=== PATIENT | female | born 1985 | race Caucasian/White ===

== ENCOUNTER 2017-07-16 17:54 | Emergency (ER) | payer BC, OTHER ==
[~2017-07-16] VITALS: Ht 162.6 cm; Wt 65.9 kg
[~2017-07-16 17:54] MED LIST: MTR600X PO; PRENTAB26 PO
[2017-07-16 18:00] VITALS: TEMP 36.5; Ht 162.6 cm; Wt 65.9 kg
[2017-07-16] MEDS ORDERED: ONDANSETRON INJ 2 MG/ML 2 ML VIAL IV STA (18:16)
[2017-07-16] MEDS ORDERED: HYDROmorphone INJ 0.5 MG/0.5 ML SYR IV STA (18:16)
[2017-07-16] MEDS ORDERED: SODIUM CHLORIDE 0.9% 1000ML 1,000 ML IV STA (18:21)
[2017-07-16 18:34] LABS: BASO % 0.4 %; BASO ABS # 0.04 K/uL (0-0.2); COMPLETE YES; EOS % 2.8 %; IG% 0.2 %; LYMPH % 13.9 %; LYMPH ABS # 1.38 K/uL (1.2-3.4); MEAN CELL VOLUME 79.4 fL (80-100); MEAN CORPUSCULAR HEMOGLOBIN 24.7 pg (25-34); MEAN CORPUSCULAR HGB CONC 31.1 g/dl (32-36); MEAN PLATELET VOLUME 9.4 fL (7.4-10.4); MONO % 6.6 %; NEUT % 76.1 %; PLATELET COUNT 207 K/uL (130-400); RED BLOOD COUNT 4.41 M/uL (4.2-5.4); WHITE BLOOD COUNT 9.95 K/uL (4.8-10.8)
--- NOTE | 2017-07-16 18:36 | EMERGENCY ROOM VISIT NOTE ---
History First contact with patient: 18:03 Chief Complaint: ED VAG BLEEDING Stated Complaint: MISCARRIAGE History of Present Illness The patient is a 31 year old female who presents to the Emergency Room with complaints of crampy abdominal pain and vaginal bleeding -Pt reported a spontaneous today after going to see her OBGYN at [facility]. -Pt is at 8 weeks. -Pt reports vaginal bleeding since yesterday and crampy abdominal pain. -Pt says that today she has been dizzy, subjective fever and chills and continued bleeding -Pt describes 2 bloody pad per hour Review of Systems see below Constitutional: + chills, + sweats, No fever Respiratory: No cough, No sputum, No wheezing Cardiovascular: No chest pain, No edema, No palpitations Abdomen: + pain, + nausea, No vomiting, No diarrhea Past Medical/Surgical History Medical Problems: (1) section Social History Smoking Status: Never Smoker Current/Historical Medications Scheduled Multivit/Min/Iron/Fol Ac/Pren ( Vitamin), 1 TAB PO DAILY Scheduled PRN Oxycodone Immediate Rel Tab (Roxicodone Ir), 1-2 TAB PO Q4H PRN for Severe Pain Physical Exam Vital Signs Date Time Temp Pulse Resp B/P (MAP) Pulse Ox O2 Delivery O2 Flow Rate FiO2 07/16/17 20:43 63 93/56 99 Room Air 07/16/17 18:42 56 108/52 100 Room Air 07/16/17 18:00 36.5 52 18 86/55 97 Room Air Physical Exam see below General Appearance: WD/WN, + mild distress Head: normocephalic, atraumatic Eyes: normal inspection, PERRL, EOMI Respiratory/Chest: chest non-tender, lungs clear, normal breath sounds, no respiratory distress, no accessory muscle use Cardiovascular: regular rate, rhythm, no edema, no gallop, no murmur Abdomen / GI: normal bowel sounds, non tender, soft, no organomegaly, no pulsatile mass Medical Decision & Procedures ER Provider Diagnostic Interpretation: TRANSVAGINAL CLINICAL HISTORY: Spontaneous . COMPARISON STUDY: No previous studies for comparison. TECHNIQUE: Transabdominal and transvaginal sonography of the pelvis was performed. FINDINGS: The endometrium measures 1.3 cm in thickness. Note is made of a 1.1 x 0.3 x 0.8 cm cystic focus within the lower uterine segment which likely reflects an abnormally positioned gestational sac. No yolk sac or pole is identified. A possible uterine anomaly is noted with possible bicornuate uterus. The right ovary measures 3.3 x 2.1 x 1.3 cm and the left ovary measures 3.2 x 2.5 x 2 cm. Color flow is identified within each ovary. No adnexal masses are identified. IMPRESSION: 1. 1.1 cm cystic focus within the lower uterine segment which likely reflects an abnormally positioned gestational sac and favors a spontaneous . A normal early intrauterine gestation is considered less likely but could appear similar. Therefore, clinical follow-up, including serial beta hCG levels is recommended. 2. Normal sonographic appearance of the ovaries. No adnexal masses. 3. Possible bicornuate uterus. Laboratory Results 07/16/17 18:20 Red Blood Count 4.41, Mean Corpuscular Volume 79.4, Mean Corpuscular Hemoglobin 24.7, Mean Corpuscular Hemoglobin Concent 31.1, Mean Platelet Volume 9.4, Neutrophils (%) (Auto) 76.1, Lymphocytes (%) (Auto) 13.9, Monocytes (%) (Auto) 6.6, Eosinophils (%) (Auto) 2.8, Basophils (%) (Auto) 0.4, Neutrophils # (Auto) 7.57, Lymphocytes # (Auto) 1.38, Monocytes # (Auto) 0.66, Eosinophils # (Auto) 0.28, Basophils # (Auto) 0.04 07/16/17 18:20 Test 07/16/17 18:20 White Blood Count 9.95 K/uL (4.8-10.8) Red Blood Count 4.41 M/uL (4.2-5.4) Hemoglobin 10.9 g/dL (12.0-16.0) Hematocrit 35.0 % (37-47) Mean Corpuscular Volume 79.4 fL (80-100) Mean Corpuscular Hemoglobin 24.7 pg (25-34) Mean Corpuscular Hemoglobin Concent 31.1 g/dl (32-36) Platelet Count 207 K/uL (130-400) Mean Platelet Volume 9.4 fL (7.4-10.4) Neutrophils (%) (Auto) 76.1 % Lymphocytes (%) (Auto) 13.9 % Monocytes (%) (Auto) 6.6 % Eosinophils (%) (Auto) 2.8 % Basophils (%) (Auto) 0.4 % Neutrophils # (Auto) 7.57 K/uL (1.4-6.5) Lymphocytes # (Auto) 1.38 K/uL (1.2-3.4) Monocytes # (Auto) 0.66 K/uL (0.11-0.59) Eosinophils # (Auto) 0.28 K/uL (0-0.5) Basophils # (Auto) 0.04 K/uL (0-0.2) RDW Standard Deviation 52.3 fL (36.4-46.3) RDW Coefficient of Variation 17.8 % (11.5-14.5) Immature Granulocyte % (Auto) 0.2 % Immature Granulocyte # (Auto) 0.02 K/uL (0.00-0.02) Activated Partial Thromboplast Time 23.8 SECONDS (21.0-31.0) Partial Thromboplastin Ratio 0.9 Anion Gap 5.0 mmol/L (3-11) Est Creatinine Clear Calc Drug Dose 75.5 ml/min Estimated GFR () 86.8 Estimated GFR (Non- 74.9 BUN/Creatinine Ratio 8.2 (10-20) Calcium Level 8.9 mg/dl (8.5-10.1) Total Bilirubin 0.2 mg/dl (0.2-1) Direct Bilirubin < 0.1 mg/dl (0-0.2) Aspartate Amino Transf (AST/SGOT) 16 U/L (15-37) Alanine Aminotransferase (ALT/SGPT) 15 U/L (12-78) Alkaline Phosphatase 42 U/L (45-117) Total Protein 7.9 gm/dl (6.4-8.2) Albumin 3.9 gm/dl (3.4-5.0) Lipase 129 U/L (73-393) Human Chorionic Gonadotropin, Quant 4884 mIU/mL Medications Administered Medications (Trade) Dose Ordered Sig/Skyla Route Start Time Stop Time Status Last Admin Dose Admin Sodium Chloride 1,000 ml @ 999 mls/hr Q1H1M STAT IV 07/16/17 18:21 07/16/17 19:21 DC 07/16/17 18:40 999 MLS/HR Ondansetron HCl (Zofran Inj) 4 mg NOW STAT IV 10/16/17 18:16 07/16/17 18:23 DC 07/16/17 18:40 4 MG Hydromorphone HCl (Dilaudid Inj) 0.5 mg NOW STAT IV 07/16/17 18:16 07/16/17 18:23 DC 07/16/17 18:40 0.5 MG ED Course 1830 History and physical performed 1899 Labs ordered bhCG quantitative, CBC, PTT, LFT's, PRP, Lipase 1904 imaging ordered: transvaginal U/S 1909 Meds order: IVF bolus, Dilaudid .5 IV, Zofran 4 mg IV 1999 reaccessed patient 2100 discussed discharge with Nora MACIEL 21:30 Pt discharged Medical Decision 31 yo at 8 weeks comes into the ED with vaginal bleeding and abdominal pain -Pt describes having an USG earlier today which confirmed spontaneous vaginal -Pt has a blood pressure of 108/52, HR 65 -Considering the following differential: spontaneous vaginal (missed, inevitable, incomplete, complete), ectopic , ruptured ectopic -Pt was accessed throughout ED visit for hemodynamic stability. -Throughout ED course, patient was provided pain control, IVF and IV Zofran -Discussed with Nora MACIEL regarding patients lab findings, vitals and USG results: -Pt was found to be normotensive, with stable H/H and USG showed "1 cm cystic focus within the lower uterine segment which likely reflects an abnormally positioned gestational sac and favors a spontaneous " -Pt Hgb was 10.9. After reviewing the patient's past H/H, this appears to be the patient's baseline. -OBGYN agreed that the patient was stable to be discharged and should be followed closely in the outpatient setting. -Pt was discharged with pain medication. Impression Primary Impression: Spontaneous Additional Impression: Anemia Departure Information Dispostion Home / Self-Care Condition GOOD Prescriptions Oxycodone Immediate Rel Tab (ROXICODONE IR) 5 Mg Tab 1-2 TAB PO Q4H Y for Severe Pain for 7 Days, #14 TAB Prov: Vishnu Trinidad M.D. 07/16/17 Forms WORK / SCHOOL INSTRUCTIONS Patient Instructions [facility] [place] Additional Instructions Mrs. Steel, You came in today with vaginal bleeding and abdominal pain. It was determined earlier today that you were experiencing a miscarriage. The ultrasound in the emergency department also confirmed this as well. Labs test in the emergency department showed stable blood levels. In addition, your blood pressure and heart rate were stable as well. We talked to Nora MACIEL and together we determined that you are good enough condition to go home. They advise that you make an appointment with them tomorrow. We are giving you pain medications to take with you. Please take them as advised on the prescription. If you have any concerns such as increasing pain, bleeding, fever, please follow -up in the emergency room. Problem Qualifiers
[2017-07-16 18:47] LABS: PARTIAL THROMBOPLASTIN RATIO 0.9
[2017-07-16 19:00] LABS: ALT/SGPT 15 U/L (12-78); BLOOD UREA NITROGEN 8 mg/dl (7-18); BUN/CREATININE RATIO 8.2 (10-20); CALCIUM 8.9 mg/dl (8.5-10.1); CARBON DIOXIDE 30 mmol/L (21-32); CHLORIDE 102 mmol/L (98-107); CREATININE 0.99 mg/dl (0.60-1.20); GLUCOSE 114 mg/dl (70-99); POTASSIUM 3.6 mmol/L (3.5-5.1); SODIUM 137 mmol/L (136-145)
[2017-07-16 19:03] LABS: ALKALINE PHOSPHATASE 42 U/L (45-117); AST/SGOT 16 U/L (15-37)
--- NOTE | 2017-07-16 19:54 | DIAGNOSTIC IMAGING REPORT ---
TRANSVAGINAL CLINICAL HISTORY: Spontaneous . COMPARISON STUDY: No previous studies for comparison. TECHNIQUE: Transabdominal and transvaginal sonography of the pelvis was performed. FINDINGS: The endometrium measures 1.3 cm in thickness. Note is made of a 1.1 x 0.3 x 0.8 cm cystic focus within the lower uterine segment which likely reflects an abnormally positioned gestational sac. No yolk sac or pole is identified. A possible uterine anomaly is noted with possible bicornuate uterus. The right ovary measures 3.3 x 2.1 x 1.3 cm and the left ovary measures 3.2 x 2.5 x 2 cm. Color flow is identified within each ovary. No adnexal masses are identified. IMPRESSION: 1. 1.1 cm cystic focus within the lower uterine segment which likely reflects an abnormally positioned gestational sac and favors a spontaneous . A normal early intrauterine gestation is considered less likely but could appear similar. Therefore, clinical follow-up, including serial beta hCG levels is recommended. 2. Normal sonographic appearance of the ovaries. No adnexal masses. 3. Possible bicornuate uterus. Electronically signed by: Sarath Bacon M.D. 07/16/2017 7:52 PM Dictated Date/Time: 07/16/2017 7:47 PM
--- NOTE | 2017-07-16 19:58 | EMERGENCY ROOM VISIT NOTE ---
ED Visit Note First contact with patient: 18:04 Resident Physician Supervision Note: I interviewed and examined the patient. Discussed with Dr. Trinidad and agree with findings and plan as documented in the note. Documented By: Gil Banegas Problem List Medical Problems: (1) section Status: Resolved Current/Historical Medications Scheduled Multivit/Min/Iron/Fol Ac/Pren ( Vitamin), 1 TAB PO DAILY Allergies Coded Allergies: Sulfa Drugs (Verified Allergy, Mild, 07/16/17) Sulfamethoxazole (Verified Allergy, Mild, 07/16/17) Trimethoprim (Verified Allergy, Mild, 07/16/17) Vital Signs Date Time Temp Pulse Resp B/P (MAP) Pulse Ox O2 Delivery O2 Flow Rate FiO2 07/16/17 18:42 56 108/52 100 Room Air 07/16/17 18:00 36.5 52 18 86/55 97 Room Air Laboratory Results 07/16/17 18:20 Red Blood Count 4.41, Mean Corpuscular Volume 79.4, Mean Corpuscular Hemoglobin 24.7, Mean Corpuscular Hemoglobin Concent 31.1, Mean Platelet Volume 9.4, Neutrophils (%) (Auto) 76.1, Lymphocytes (%) (Auto) 13.9, Monocytes (%) (Auto) 6.6, Eosinophils (%) (Auto) 2.8, Basophils (%) (Auto) 0.4, Neutrophils # (Auto) 7.57, Lymphocytes # (Auto) 1.38, Monocytes # (Auto) 0.66, Eosinophils # (Auto) 0.28, Basophils # (Auto) 0.04 07/16/17 18:20 Test 07/16/17 18:20 White Blood Count 9.95 K/uL (4.8-10.8) Red Blood Count 4.41 M/uL (4.2-5.4) Hemoglobin 10.9 g/dL (12.0-16.0) Hematocrit 35.0 % (37-47) Mean Corpuscular Volume 79.4 fL (80-100) Mean Corpuscular Hemoglobin 24.7 pg (25-34) Mean Corpuscular Hemoglobin Concent 31.1 g/dl (32-36) Platelet Count 207 K/uL (130-400) Mean Platelet Volume 9.4 fL (7.4-10.4) Neutrophils (%) (Auto) 76.1 % Lymphocytes (%) (Auto) 13.9 % Monocytes (%) (Auto) 6.6 % Eosinophils (%) (Auto) 2.8 % Basophils (%) (Auto) 0.4 % Neutrophils # (Auto) 7.57 K/uL (1.4-6.5) Lymphocytes # (Auto) 1.38 K/uL (1.2-3.4) Monocytes # (Auto) 0.66 K/uL (0.11-0.59) Eosinophils # (Auto) 0.28 K/uL (0-0.5) Basophils # (Auto) 0.04 K/uL (0-0.2) RDW Standard Deviation 52.3 fL (36.4-46.3) RDW Coefficient of Variation 17.8 % (11.5-14.5) Immature Granulocyte % (Auto) 0.2 % Immature Granulocyte # (Auto) 0.02 K/uL (0.00-0.02) Activated Partial Thromboplast Time 23.8 SECONDS (21.0-31.0) Partial Thromboplastin Ratio 0.9 Anion Gap 5.0 mmol/L (3-11) Est Creatinine Clear Calc Drug Dose 75.5 ml/min Estimated GFR () 86.8 Estimated GFR (Non- 74.9 BUN/Creatinine Ratio 8.2 (10-20) Calcium Level 8.9 mg/dl (8.5-10.1) Total Bilirubin 0.2 mg/dl (0.2-1) Direct Bilirubin < 0.1 mg/dl (0-0.2) Aspartate Amino Transf (AST/SGOT) 16 U/L (15-37) Alanine Aminotransferase (ALT/SGPT) 15 U/L (12-78) Alkaline Phosphatase 42 U/L (45-117) Total Protein 7.9 gm/dl (6.4-8.2) Albumin 3.9 gm/dl (3.4-5.0) Lipase 129 U/L (73-393) Human Chorionic Gonadotropin, Quant 4884 mIU/mL Medications Administered Medications (Trade) Dose Ordered Sig/Skyla Route Start Time Stop Time Status Last Admin Dose Admin Sodium Chloride 1,000 ml @ 999 mls/hr Q1H1M STAT IV 07/16/17 18:21 07/16/17 19:21 DC 07/16/17 18:40 999 MLS/HR Ondansetron HCl (Zofran Inj) 4 mg NOW STAT IV 07/16/17 18:16 07/16/17 18:23 DC 07/16/17 18:40 4 MG Hydromorphone HCl (Dilaudid Inj) 0.5 mg NOW STAT IV 07/16/17 18:16 07/16/17 18:23 DC 07/16/17 18:40 0.5 MG Departure Information Referrals Anjel Benavidez M.D. (PCP) Patient Instructions [facility]
[2017-07-16] MEDS ORDERED: OXYC1TAB3 PO (20:37)
[2017-07-16 20:43] VITALS: BP 93/56; PULSE 63; O2SAT 99
[2017-07-16] MEDS ORDERED: OXYCODONE IR HOME PACK PO ONE (21:00)
== END 2017-07-16 21:00 | disposition home or self-care (01) ==
LOC: C.EDB 17:55
DX: O03.9 Complete or unspecified spontaneous abortion without complication (principal); D64.9 Anemia, unspecified